=== PATIENT | female | born 1975 | race Caucasian/White ===

== ENCOUNTER 2020-01-04 12:47 | Emergency (ER) | payer BC, MEDICAID ==
[~2020-01-04] VITALS: Ht 157.5 cm; Wt 127.3 kg
[~2020-01-04 12:47] MED LIST: DYR50C PO; HYDR-4383 PO; NITR100C6 PO; ONDA4TAB59 PO; ONDA8TAB9 PO; TRAM50TA2 PO
[2020-01-04 15:34] LABS: BASOPHILS # (AUTO) 0.1 X10'3 (0-0.2); BASOPHILS % (AUTO) 0.5 % (0-1); EOSINOPHILS # (AUTO) 0.4 X10'3 (0-0.9); EOSINOPHILS % (AUTO) 4.8 % (0-6); HEMOGLOBIN 12.9 g/dl (12.0-16.0); LYMPHOCYTES # (AUTO) 2.4 X10'3 (1.1-4.8); LYMPHOCYTES % (AUTO) 25.3 % (21-51); MEAN CORPUSCULAR HEMOGLOBIN 28.3 PG (27.0-31.0); MEAN CORPUSCULAR HGB CONC 33.1 g/dL (33.0-36.5); MEAN CORPUSCULAR VOLUME 85.4 FL (78-98); MEAN PLATELET VOLUME 8.1 FL (7.4-10.4); MONOCYTES # (AUTO) 0.6 X10'3 (0-0.9); MONOCYTES % (AUTO) 6.2 % (2-12); NEUTROPHILS # (AUTO) 5.9 X10'3 (1.8-7.7); NEUTROPHILS % (AUTO) 63.2 % (42-75); PLATELET COUNT 263 X10'3 (140-440); RED BLOOD COUNT 4.57 X10'6 (4.20-5.60); WHITE BLOOD COUNT 9.3 X10'3 (4.5-11.0)
[2020-01-04 15:45] LABS: ALANINE AMINOTRANSFERASE 46 U/L (12-78); ALBUMIN 3.2 G/DL (3.4-5.0); ALBUMIN/GLOBULIN RATIO 0.7 (1.1-1.5); ALKALINE PHOSPHATASE 111 IU/L (46-116); ASPARTATE AMINO TRANSFERASE 35 U/L (10-37); BILIRUBIN,TOTAL 0.3 MG/DL (0.1-1.0); BLOOD UREA NITROGEN 11 MG/DL (7-18); BUN/CREATININE RATIO 11.8 (6.6-38.0); CALCIUM 9.3 MG/DL (8.5-10.1); CREATININE 0.93 MG/DL (0.40-0.90); GLUCOSE 120 MG/DL (70-104); TOTAL CARBON DIOXIDE 29.6 MMOL/L (24-32); TOTAL PROTEIN 7.5 G/DL (6.4-8.2); eGFR 66 ML/MIN
[2020-01-04 15:52] LABS: ANION GAP 7 (8-16); CHLORIDE 101 MMOL/L (99-107); SODIUM 138 MMOL/L (135-145)
[2020-01-04] MEDS ORDERED: iohexol 300mg/ml 100ml inj. ONE (16:07)
--- NOTE | 2020-01-04 17:30 | NUR ---
CHRISTOPHER Muniz aware of pt's elevated BP. Pt with Hx of htn, takes meds in evening.
[2020-01-04 17:34] VITALS: BP 162/109
== END 2020-01-04 17:38 | disposition home or self-care (01) ==
LOC: ER 12:48
DX: L03.213 Periorbital cellulitis (principal); I10 Essential (primary) hypertension; J45.909 Unspecified asthma, uncomplicated; G47.30 Sleep apnea, unspecified; G89.29 Other chronic pain; Z98.0 Intestinal bypass and anastomosis status; Z90.49 Acquired absence of other specified parts of digestive tract; Z98.890 Other specified postprocedural states; Z88.0 Allergy status to penicillin; Z79.899 Other long term (current) drug therapy
CPT/HCPCS: 36415; 70482; 80053; 85025; 99285; Q9967

== ENCOUNTER 2021-12-03 23:00 | Emergency (ER) | payer BC, MEDICAID ==
[~2021-12-03] VITALS: Ht 157.5 cm; Wt 127.3 kg
[2021-12-04 00:04] LABS: BASOPHILS # (AUTO) 0.1 X10'3 (0-0.2); BASOPHILS % (AUTO) 0.6 % (0-1); EOSINOPHILS # (AUTO) 0.3 X10'3 (0-0.9); EOSINOPHILS % (AUTO) 3.2 % (0-6); HEMATOCRIT 38.6 % (35.0-45.0); HEMOGLOBIN 12.9 g/dl (12.0-16.0); LYMPHOCYTES # (AUTO) 2.9 X10'3 (1.1-4.8); LYMPHOCYTES % (AUTO) 27.5 % (21-51); MEAN CORPUSCULAR HEMOGLOBIN 27.9 PG (27.0-31.0); MEAN CORPUSCULAR HGB CONC 33.5 g/dL (33.0-36.5); MEAN CORPUSCULAR VOLUME 83.4 FL (78-98); MEAN PLATELET VOLUME 7.6 FL (7.4-10.4); MONOCYTES # (AUTO) 0.8 X10'3 (0-0.9); MONOCYTES % (AUTO) 7.3 % (2-12); NEUTROPHILS # (AUTO) 6.4 X10'3 (1.8-7.7); NEUTROPHILS % (AUTO) 61.4 % (42-75); PLATELET COUNT 274 X10'3 (140-440); RED BLOOD COUNT 4.63 X10'6 (4.20-5.60); RED CELL DISTRIBUTION WIDTH 14.9 % (11.5-14.5); WHITE BLOOD COUNT 10.4 X10'3 (4.5-11.0)
[2021-12-04 00:15] LABS: CLARITY,URINE SLIGHTLY CLOUDY (Clear); COLOR,URINE YELLOW (Yellow); GLUCOSE, URINE NEGATIVE (Neg); KETONES,URINE NEGATIVE (Neg); LEUKOCYTE ESTERASE ,URINE NEGATIVE (Neg); NITRITES, URINE NEGATIVE (Neg); OCCULT BLOOD,URINE TRACE-INTACT (Neg); PROTEIN,URINE NEGATIVE (Neg); UROBILINOGEN,URINE 0.2 E.U/dL (0.2-1.0)
[2021-12-04 00:17] LABS: ALANINE AMINOTRANSFERASE 43 U/L (12-78); ALBUMIN 3.2 G/DL (3.4-5.0); ALBUMIN/GLOBULIN RATIO 0.7 (1.1-1.5); ALKALINE PHOSPHATASE 110 IU/L (46-116); ANION GAP 9 (8-16); ASPARTATE AMINO TRANSFERASE 41 U/L (10-37); BILIRUBIN,TOTAL 0.3 MG/DL (0.1-1.0); BLOOD UREA NITROGEN 12 MG/DL (7-18); BUN/CREATININE RATIO 14.5 (6.6-38.0); CALCIUM 8.4 MG/DL (8.5-10.1); CHLORIDE 105 MMOL/L (99-107); CREATININE 0.83 MG/DL (0.40-0.90); GLUCOSE 88 MG/DL (70-104); LIPASE 146 U/L (73-393); POTASSIUM 3.9 MMOL/L (3.5-5.1); SODIUM 143 MMOL/L (135-145); TOTAL CARBON DIOXIDE 28.9 MMOL/L (24-32); TOTAL PROTEIN 7.5 G/DL (6.4-8.2); eGFR 74 ML/MIN
[2021-12-04 00:20] LABS: UA COLLECTION TYPE CLN CATCH MIDSTREAM
[2021-12-04 00:23] LABS: BACTERIA,URINE FEW /HPF (Neg); RBC,URINE 0-2 /HPF (0-2); SQUAMOUS EPITHELIAL CELL,UR FEW /LPF (FEW); WBC,URINE 0-4 /HPF (0-4)
[2021-12-04] MEDS ORDERED: ONDA8TAB13 PO (05:40)
[2021-12-04] MEDS ORDERED: HYDR-3965 PO (05:40)
[2021-12-04] MEDS ORDERED: ondansetron 4mg rapidly disintigrating tab PO ONE (05:40)
[2021-12-04] MEDS ORDERED: HYDROcodone/acetaminophen 10/325mg tab PO ONE (05:40)
[2021-12-04] MEDS ORDERED: ketorolac trometh inj. 60 MG/2 ML VIAL IM ONE (05:40)
[2021-12-04 06:10] VITALS: BP 139/87
== END 2021-12-04 06:13 | disposition home or self-care (01) ==
LOC: ER 23:01
DX: R10.9 Unspecified abdominal pain (principal); I10 Essential (primary) hypertension; J45.909 Unspecified asthma, uncomplicated; G89.29 Other chronic pain; M54.9 Dorsalgia, unspecified; Z87.442 Personal history of urinary calculi; Z90.49 Acquired absence of other specified parts of digestive tract; Z88.0 Allergy status to penicillin; Z79.899 Other long term (current) drug therapy
CPT/HCPCS: 36415; 80053; 81001; 83690; 85025; 96372; 99283; J1885; 81003

== ENCOUNTER 2022-02-01 11:56 | Emergency (ER) | payer MEDICAID ==
[~2022-02-01] VITALS: Ht 157.5 cm; Wt 127.0 kg
[~2022-02-01 11:56] MED LIST changes: +ONDA8TAB13 PO
[2022-02-01 12:00] VITALS: BP 174/91
== END 2022-02-01 14:04 | disposition home or self-care (01) ==
LOC: ER 11:57
DX: J32.9 Chronic sinusitis, unspecified (principal); R04.0 Epistaxis
CPT/HCPCS: 99281

== ENCOUNTER 2022-04-30 19:39 | Emergency (ER) | payer MEDICAID ==
[~2022-04-30] VITALS: Ht 157.5 cm; Wt 127.3 kg
[2022-04-30 21:10] LABS: BASOPHILS # (AUTO) 0.1 X10'3 (0-0.2); BASOPHILS % (AUTO) 0.6 % (0-1); EOSINOPHILS # (AUTO) 0.4 X10'3 (0-0.9); EOSINOPHILS % (AUTO) 2.9 % (0-6); HEMATOCRIT 43.6 % (35.0-45.0); HEMOGLOBIN 14.7 g/dl (12.0-16.0); LYMPHOCYTES # (AUTO) 2.4 X10'3 (1.1-4.8); LYMPHOCYTES % (AUTO) 18.9 % (21-51); MEAN CORPUSCULAR HEMOGLOBIN 28.6 PG (27.0-31.0); MEAN CORPUSCULAR HGB CONC 33.8 g/dL (33.0-36.5); MEAN CORPUSCULAR VOLUME 84.7 FL (78-98); MEAN PLATELET VOLUME 7.7 FL (7.4-10.4); MONOCYTES # (AUTO) 0.7 X10'3 (0-0.9); MONOCYTES % (AUTO) 5.4 % (2-12); NEUTROPHILS # (AUTO) 9.1 X10'3 (1.8-7.7); NEUTROPHILS % (AUTO) 72.2 % (42-75); PLATELET COUNT 275 X10'3 (140-440); RED BLOOD COUNT 5.15 X10'6 (4.20-5.60); RED CELL DISTRIBUTION WIDTH 14.7 % (11.5-14.5); WHITE BLOOD COUNT 12.6 X10'3 (4.5-11.0)
[2022-04-30 21:13] LABS: CLARITY,URINE CLOUDY (Clear); COLOR,URINE YELLOW (Yellow); GLUCOSE, URINE NEGATIVE (Neg); KETONES,URINE TRACE mg/dl (Neg); LEUKOCYTE ESTERASE ,URINE NEGATIVE (Neg); NITRITES, URINE NEGATIVE (Neg); OCCULT BLOOD,URINE SMALL (Neg); PROTEIN,URINE 30 mg/dl (Neg); UROBILINOGEN,URINE 0.2 E.U/dL (0.2-1.0)
[2022-04-30 21:15] LABS: UA COLLECTION TYPE CLN CATCH MIDSTREAM
[2022-04-30 21:18] LABS: SQUAMOUS EPITHELIAL CELL,UR MANY /LPF (FEW)
[2022-04-30 21:19] LABS: CAL OXALATE CRYSTALS 2+ /HPF (NEGATIVE); HYALINE CASTS 0-3 /LPF (NEGATIVE); MUCUS STRANDS MODERATE /LPF (Neg)
[2022-04-30 21:20] LABS: BACTERIA,URINE FEW /HPF (Neg); RBC,URINE 0-2 /HPF (0-2); WBC,URINE 0-4 /HPF (0-4)
[2022-04-30 21:31] LABS: ALANINE AMINOTRANSFERASE 57 U/L (12-78); ALBUMIN 3.7 G/DL (3.4-5.0); ALBUMIN/GLOBULIN RATIO 0.8 (1.1-1.5); ALKALINE PHOSPHATASE 121 IU/L (46-116); ANION GAP 10 (8-16); ASPARTATE AMINO TRANSFERASE 52 U/L (10-37); BILIRUBIN,TOTAL 0.6 MG/DL (0.1-1.0); BLOOD UREA NITROGEN 14 MG/DL (7-18); BUN/CREATININE RATIO 15.4 (6.6-38.0); CALCIUM 9.7 MG/DL (8.5-10.1); CHLORIDE 100 MMOL/L (99-107); CREATININE 0.91 MG/DL (0.40-0.90); GLUCOSE 144 MG/DL (70-104); LIPASE 101 U/L (73-393); POTASSIUM 3.7 MMOL/L (3.5-5.1); SODIUM 136 MMOL/L (135-145); TOTAL CARBON DIOXIDE 26.1 MMOL/L (24-32); TOTAL PROTEIN 8.5 G/DL (6.4-8.2); eGFR 67 ML/MIN
[2022-04-30] MEDS ORDERED: normal saline 1000ml 1,000 ML IV ONE ×2 (21:45)
[2022-04-30] MEDS ORDERED: CefTRIAXone/D5W-Rocephin 1gm 50 ML IV ONE (22:05)
[2022-05-01] MEDS ORDERED: ONDA4TAB12 PO (00:02)
[2022-05-01] MEDS ORDERED: CEPH-585 PO (00:02)
[2022-05-01] MEDS ORDERED: normal saline 1000ML IV soln IV ONE (01:40)
[2022-05-01] MEDS ORDERED: ibuprofen tablet 400 MG TABLET PO STA (01:45)
[2022-05-01 02:08] VITALS: BP 158/82
--- NOTE | 2022-05-01 03:43 | NUR ---
iv dc'd pt being discharged dressing applied
== END 2022-05-01 03:45 | disposition home or self-care (01) ==
LOC: ER 19:39
DX: R10.13 Epigastric pain (principal); R50.9 Fever, unspecified; M54.50 Low back pain, unspecified; R11.2 Nausea with vomiting, unspecified; I10 Essential (primary) hypertension; J45.909 Unspecified asthma, uncomplicated; G89.29 Other chronic pain; G47.30 Sleep apnea, unspecified; Z87.442 Personal history of urinary calculi; Z90.49 Acquired absence of other specified parts of digestive tract; Z98.890 Other specified postprocedural states; Z88.0 Allergy status to penicillin; Z79.899 Other long term (current) drug therapy
CPT/HCPCS: 36415; 74176; 80053; 81001; 83605; 83690; 84145; 85025; 87040; 96361; 96365; 99285; J0696; J7030

== ENCOUNTER 2023-02-05 12:06 | Emergency (ER) | payer MEDICAID ==
[~2023-02-05] VITALS: Ht 160 cm; Wt 132.1 kg
[~2023-02-05 12:06] MED LIST changes: +CEPH-585 PO; +ONDA4TAB12 PO
[2023-02-05 13:33] LABS: BASOPHILS # (AUTO) 0.1 X10'3 (0-0.2); BASOPHILS % (AUTO) 0.9 % (0-1); EOSINOPHILS # (AUTO) 0.5 X10'3 (0-0.9); HEMATOCRIT 39.8 % (35.0-45.0); HEMOGLOBIN 13.3 g/dl (12.0-16.0); LYMPHOCYTES # (AUTO) 2.7 X10'3 (1.1-4.8); LYMPHOCYTES % (AUTO) 28.7 % (21-51); MEAN CORPUSCULAR HEMOGLOBIN 28.3 PG (27.0-31.0); MEAN CORPUSCULAR HGB CONC 33.4 g/dL (33.0-36.5); MEAN CORPUSCULAR VOLUME 84.6 FL (78-98); MEAN PLATELET VOLUME 7.6 FL (7.4-10.4); MONOCYTES # (AUTO) 0.7 X10'3 (0-0.9); MONOCYTES % (AUTO) 7.1 % (2-12); NEUTROPHILS # (AUTO) 5.5 X10'3 (1.8-7.7); NEUTROPHILS % (AUTO) 58.3 % (42-75); PLATELET COUNT 241 X10'3 (140-440); RED CELL DISTRIBUTION WIDTH 14.8 % (11.5-14.5); WHITE BLOOD COUNT 9.4 X10'3 (4.5-11.0)
[2023-02-05 13:43] LABS: PROTHROMBIN TIME 10.7 SECONDS (9.0-12.0)
[2023-02-05 13:58] LABS: LIPASE 26 U/L (16-77)
[2023-02-05] MEDS ORDERED: iohexol 300mg/ml 100ml inj. ONE (15:03)
[2023-02-05] MEDS ORDERED: ondansetron/PF 4mg/2ml inj IV ONE ×3 (15:10→18:05)
[2023-02-05] MEDS ORDERED: morphine 4 MG/ML inj SYRINge IV ONE ×3 (15:10→17:15)
--- NOTE | 2023-02-05 15:30 | NUR ---
RN ATTEMPTING US IV AT THIS TIME. PT IS HARD STICK.
--- NOTE | 2023-02-05 15:44 | NUR ---
PER ANGELIQUE WHITE RN MAY CHG MORPHINE 4MG TO IM AND ZOFRAN 4MG TO PO D/T US REQ FOR IV AND PT C/O PAIN.
--- NOTE | 2023-02-05 15:52 | NUR ---
RN HAVING TROUBLE ORD MORPHINE IM/ONLY OPTION IV. RN CALLED PHARM AND PHARMACIST WILL CHG ORD TO IM.
[2023-02-05 15:53] LABS: ALANINE AMINOTRANSFERASE 41 U/L (12-78); ALBUMIN 3.5 G/DL (3.4-5.0); ALBUMIN/GLOBULIN RATIO 0.8 (1.1-1.5); ALKALINE PHOSPHATASE 101 IU/L (46-116); ANION GAP 11 (8-16); ASPARTATE AMINO TRANSFERASE 39 U/L (10-37); BILIRUBIN,TOTAL 0.5 MG/DL (0.1-1.0); BLOOD UREA NITROGEN 8 MG/DL (7-18); CALCIUM 9.6 MG/DL (8.5-10.1); CHLORIDE 101 MMOL/L (99-107); GLUCOSE 156 MG/DL (70-104); POTASSIUM 3.6 MMOL/L (3.5-5.1); SODIUM 139 MMOL/L (135-145); TOTAL CARBON DIOXIDE 26.7 MMOL/L (24-32); TOTAL PROTEIN 7.9 G/DL (6.4-8.2); eCRCL 58 ML/MIN; eGFR 60 ML/MIN
[2023-02-05] MEDS ORDERED: ondansetron 4mg rapidly disintigrating tab PO ONE (15:55)
[2023-02-05] MEDS ORDERED: morphine 10mg/ml inj. IM ONE (16:00)
--- NOTE | 2023-02-05 16:43 | NUR ---
THIS RN CHARTED ASSESSMENT FOR TEACHING PURPOSES FOR ANABELLA RN WHO IS IN ORIENTATION AND OFFICIAL ASSESSMENT FOR PT.
--- NOTE | 2023-02-05 16:45 | NUR ---
PT TAKEN TO CT
[2023-02-05 17:18] LABS: BILIRUBIN,URINE NEGATIVE (Neg); CLARITY,URINE SLIGHTLY CLOUDY (Clear); COLOR,URINE YELLOW (Yellow); GLUCOSE, URINE NEGATIVE (Neg); KETONES,URINE NEGATIVE (Neg); LEUKOCYTE ESTERASE ,URINE NEGATIVE (Neg); NITRITES, URINE NEGATIVE (Neg); OCCULT BLOOD,URINE NEGATIVE (Neg); PH,URINE 6.5 (4.8-8.0); PROTEIN,URINE 30 mg/dl (Neg); UROBILINOGEN,URINE 0.2 E.U/dL (0.2-1.0)
[2023-02-05 17:22] LABS: UA COLLECTION TYPE CLN CATCH MIDSTREAM
[2023-02-05 17:23] LABS: BACTERIA,URINE FEW /HPF (Neg); MUCUS STRANDS MODERATE /LPF (Neg); RBC,URINE 0-2 /HPF (0-2); SQUAMOUS EPITHELIAL CELL,UR MANY /LPF (FEW)
[2023-02-05 17:24] LABS: WBC,URINE 0-4 /HPF (0-4)
[2023-02-05] MEDS ORDERED: OXYC-145 PO (18:23)
[2023-02-05 18:43] VITALS: BP 145/61; PULSE 93; RESP 14; TEMP 98.4; O2SAT 96
== END 2023-02-05 18:50 | disposition home or self-care (01) ==
LOC: ER 12:07
DX: R10.12 Left upper quadrant pain (principal); R19.7 Diarrhea, unspecified
CPT/HCPCS: 36415; 71045; 74177; 80053; 81001; 83690; 84484; 85025; 85610; 93005; 96372; 96374; 96375; 99285; J2270; J2274; J2405; J3490; Q9967

== ENCOUNTER 2023-03-18 17:55 | Inpatient (IN) | payer MEDICAID ==
[~2023-03-18] VITALS: Ht 157.5 cm; Wt 124.9 kg
[~2023-03-18 17:55] MED LIST changes: +OXYC-145 PO
[2023-03-18] MEDS ORDERED: normal saline 1000ML IV soln IV ONE (18:45)
[2023-03-18] MEDS ORDERED: acetaminophen 1,000mg/100ml IV 100 ML IV ONE (18:55)
[2023-03-18 19:22] LABS: URINE HCG NEGATIVE (NEG)
[2023-03-18 19:30] LABS: BILIRUBIN,URINE NEGATIVE (Neg); CLARITY,URINE SLIGHTLY CLOUDY (Clear); COLOR,URINE YELLOW (Yellow); GLUCOSE, URINE 500 mg/dl (Neg); KETONES,URINE TRACE mg/dl (Neg); LEUKOCYTE ESTERASE ,URINE TRACE (Neg); NITRITES, URINE POSITIVE (Neg); OCCULT BLOOD,URINE TRACE-INTACT (Neg); PROTEIN,URINE 100 mg/dl (Neg); UROBILINOGEN,URINE 0.2 E.U/dL (0.2-1.0)
[2023-03-18 19:41] LABS: UA COLLECTION TYPE CLN CATCH MIDSTREAM
[2023-03-18 19:49] LABS: WBC,URINE 30-50 /HPF (0-4)
[2023-03-18 19:50] LABS: BACTERIA,URINE 3+ /HPF (Neg); MUCUS STRANDS NONE SEEN /LPF (Neg); RBC,URINE 0-2 /HPF (0-2); SQUAMOUS EPITHELIAL CELL,UR MANY /LPF (FEW); WBC CLUMPS,URINE MODERATE /HPF (NEGATIVE)
[2023-03-18 19:58] LABS: BASOPHILS # (AUTO) 0.1 X10'3 (0-0.2); BASOPHILS % (AUTO) 1.1 % (0-1); EOSINOPHILS % (AUTO) 0.4 % (0-6); HEMATOCRIT 39.6 % (35.0-45.0); HEMOGLOBIN 13.2 g/dl (12.0-16.0); LYMPHOCYTES # (AUTO) 1.5 X10'3 (1.1-4.8); LYMPHOCYTES % (AUTO) 15.8 % (21-51); MEAN CORPUSCULAR HEMOGLOBIN 28.6 PG (27.0-31.0); MEAN CORPUSCULAR HGB CONC 33.4 g/dL (33.0-36.5); MEAN CORPUSCULAR VOLUME 85.6 FL (78-98); MEAN PLATELET VOLUME 8.3 FL (7.4-10.4); MONOCYTES # (AUTO) 0.8 X10'3 (0-0.9); NEUTROPHILS # (AUTO) 6.8 X10'3 (1.8-7.7); NEUTROPHILS % (AUTO) 73.7 % (42-75); PLATELET COUNT 241 X10'3 (140-440); RED BLOOD COUNT 4.63 X10'6 (4.20-5.60); RED CELL DISTRIBUTION WIDTH 14.8 % (11.5-14.5); WHITE BLOOD COUNT 9.2 X10'3 (4.5-11.0)
[2023-03-18 20:09] LABS: ALANINE AMINOTRANSFERASE 36 U/L (12-78); ALBUMIN 3.3 G/DL (3.4-5.0); ALBUMIN/GLOBULIN RATIO 0.6 (1.1-1.5); ALKALINE PHOSPHATASE 112 IU/L (46-116); ANION GAP 10 (8-16); ASPARTATE AMINO TRANSFERASE 35 U/L (10-37); BILIRUBIN,TOTAL 0.5 MG/DL (0.1-1.0); BLOOD UREA NITROGEN 16 MG/DL (7-18); BUN/CREATININE RATIO 11.7 (10.0-20.0); CALCIUM 9.3 MG/DL (8.5-10.1); CHLORIDE 94 MMOL/L (99-107); CREATININE 1.37 MG/DL (0.40-0.90); GLUCOSE 298 MG/DL (70-104); MAGNESIUM 1.6 MG/DL (1.5-2.4); POTASSIUM 3.8 MMOL/L (3.5-5.1); SODIUM 132 MMOL/L (135-145); TOTAL CARBON DIOXIDE 27.9 MMOL/L (24-32); TOTAL PROTEIN 8.7 G/DL (6.4-8.2); eCRCL 40 ML/MIN; eGFR 41 ML/MIN
[2023-03-18] MEDS ORDERED: iohexol 300mg/ml 100ml inj. ONE (20:28)
[2023-03-18] MEDS ORDERED: metroNIDAZOLE-Flagyl 500mg/NS 100 ML IV STA (21:39)
[2023-03-18] MEDS ORDERED: ketorolac trometh. 30mg/ml inj. IV ONE (21:40)
[2023-03-18] MEDS ORDERED: CefTRIAXone/D5W-Rocephin 1gm 50 ML IV ONE (21:40)
[2023-03-18] MEDS ORDERED: morphine 4 MG/ML inj SYRINge IV ONE (21:45)
[2023-03-18] MEDS ORDERED: ondansetron/PF 4mg/2ml inj IV ONE (21:45)
[2023-03-19] VITALS (9 sets, daily range): BP systolic 136–145; BP diastolic 79–80; PULSE 82–114; RESP 16–22; TEMP 98.1–99; O2SAT 95–100
[2023-03-19] MEDS ORDERED: ALBU10.7 INH (00:05)
[2023-03-19] MEDS ORDERED: HYDR-3686 PO (00:05)
[2023-03-19] MEDS ORDERED: DULO60CA65 PO (00:05)
[2023-03-19] MEDS ORDERED: ATOR40TA72 PO (00:05)
[2023-03-19] MEDS ORDERED: IRBE150T24 PO (00:05)
[2023-03-19] MEDS ORDERED: GABA1TAB3 PO (00:05)
[2023-03-19] MEDS ORDERED: TRIA1TAB5 PO (00:05)
[2023-03-19] MEDS ORDERED: PER5325T PO (00:05)
[2023-03-19] MEDS ORDERED: mag hydrox/Alum hydrox/simeth 30ml oral suspension PO PRN (00:45)
[2023-03-19] MEDS ORDERED: diphenhydrAMINE 50 mg/ml inj IV PRN (00:45)
[2023-03-19] MEDS ORDERED: morphine 2 MG/ML inj. syringe IV PRN ×2 (00:45)
[2023-03-19] MEDS ORDERED: ondansetron 4mg rapidly disintigrating tab PO PRN (00:45)
[2023-03-19] MEDS ORDERED: magnesium hydroxide 30ml (MOM) UD suspension PO PRN (00:45)
[2023-03-19] MEDS ORDERED: bisacodyl 10mg suppository rectal RC PRN (00:45)
[2023-03-19] MEDS ORDERED: acetaminophen 325mg tablet PO PRN ×2 (00:45)
[2023-03-19] MEDS ORDERED: metoclopramide 5 mg/ml inj IV PRN (00:45)
[2023-03-19] MEDS ORDERED: diphenhydrAMINE 25mg capsule PO PRN (00:45)
[2023-03-19] MEDS ORDERED: HYDROcodone/acetaminophen 5mg/325mg tablet PO PRN ×2 (00:45→01:05)
[2023-03-19] MEDS ORDERED: MESSAGE TO PHARMACY PO ONE (00:50)
[2023-03-19] MEDS ORDERED: glucagon, human recombinant 1mg kit SUBCUT PRN (00:50)
[2023-03-19] MEDS ORDERED: dextrose 50%-water 50ml dispensing syringe IV PRN ×2 (00:50)
[2023-03-19] MEDS ORDERED: DEXTROSE 15 GM of carb/4 tabs (each vial/BOTTLE has 4 tablets) PO PRN ×2 (00:50)
[2023-03-19] MEDS: normal saline 1000ml 1,000 ML IV SCH ×4 (00:57→19:38)
[2023-03-19] MEDS ORDERED: oxyCODONE/APAP 5-325mg tablet PO PRN (01:05)
[2023-03-19] MEDS ORDERED: hydrOXYzine 25 MG tablet PO PRN (01:05)
[2023-03-19 01:53] LABS: LIPASE 26 U/L (16-77); PHOSPHORUS 1.3 MG/DL (2.3-4.5); PRO BRAIN NATRIURETIC PEPTIDE 30 PG/ML (0-125)
[2023-03-19 01:54] LABS: APTT 29 SECONDS (22-32); D-DIMER 0.47 MG/L FEU (0-0.50); INR 1.1 INR; PROTHROMBIN TIME 11.5 SECONDS (9.0-12.0)
[2023-03-19 05:14] LABS: URINE AMPHETAMINE SCREEN NEGATIVE (Neg); URINE BARBITUATE SCREEN NEGATIVE (Neg); URINE BENZODIAZEPINES SCREEN NEGATIVE (Neg); URINE CANNABINOID SCREEN POSITIVE (Neg); URINE COCAINE SCREEN NEGATIVE (Neg); URINE METHADONE SCREEN NEGATIVE (Neg); URINE OPIATE SCREEN NEGATIVE (Neg); URINE PHENCYCLIDINE SCREEN NEGATIVE (Neg)
[2023-03-19] MEDS: albuterol 2.5 MG/3 ML nebule NEB SCH ×3 (07:59→21:01)
[2023-03-19] MEDS: budesonide 0.5mg/2ml UD nebule IH SCH ×2 (07:59→21:01)
[2023-03-19] MEDS: atorvastatin 20mg tablet PO SCH (08:50)
[2023-03-19] MEDS: docusate sod 100mg capsule PO SCH ×2 (08:50→20:00)
[2023-03-19] MEDS: gabapentin 300mg capsule PO SCH ×3 (08:50→20:53)
[2023-03-19] MEDS: heparin, porcine 5000 units/ml vial SQ SCH ×2 (08:51→17:22)
[2023-03-19] MEDS: levoFLOXACIN-Levaquin 750MG/D5 150 ML IV SCH (08:52)
[2023-03-19] MEDS: pantoprazole 40mg Tablet.DR PO SCH (09:26)
[2023-03-19] MEDS: duloxetine 30mg CAPSULE.DR PO SCH (09:26)
[2023-03-19] MEDS: losartan 50mg tablet PO SCH (09:27)
[2023-03-19] MEDS: insulin Lispro (HumaLOG) vial - multi-dose SQ SCH ×2 (11:03→14:08)
[2023-03-19] MEDS: ondansetron/PF 4mg/2ml inj IV PRN (14:10)
[2023-03-19] MEDS: HYDROcodone/acetaminophen 10/325mg tab PO PRN (18:12)
[2023-03-19] MEDS ORDERED: insulin glargine (Lantus) pen - multi-dose SQ SCH (21:00)
[2023-03-19] MEDS ORDERED: temazepam 15mg capsule PO PRN (21:00)
[2023-03-20] MEDS: heparin, porcine 5000 units/ml vial SQ SCH ×2 (01:34→08:41)
[2023-03-20] MEDS: HYDROcodone/acetaminophen 10/325mg tab PO PRN (01:38)
[2023-03-20 02:00] VITALS: BP 120/62; PULSE 105; RESP 20; TEMP 98.2; O2SAT 96
[2023-03-20] MEDS: albuterol 2.5 MG/3 ML nebule NEB SCH ×2 (02:00→08:00)
[2023-03-20] MEDS: ondansetron/PF 4mg/2ml inj IV PRN (04:50)
[2023-03-20 06:00] VITALS: BP 149/96; PULSE 96; RESP 22; TEMP 97.9; O2SAT 98
[2023-03-20 06:22] LABS: BASOPHILS # (AUTO) 0.1 X10'3 (0-0.2); BASOPHILS % (AUTO) 0.8 % (0-1); EOSINOPHILS # (AUTO) 0.2 X10'3 (0-0.9); EOSINOPHILS % (AUTO) 3.1 % (0-6); HEMATOCRIT 29.7 % (35.0-45.0); HEMOGLOBIN 10.1 g/dl (12.0-16.0); LYMPHOCYTES # (AUTO) 1.9 X10'3 (1.1-4.8); LYMPHOCYTES % (AUTO) 27.8 % (21-51); MEAN CORPUSCULAR HEMOGLOBIN 28.8 PG (27.0-31.0); MEAN CORPUSCULAR VOLUME 84.7 FL (78-98); MEAN PLATELET VOLUME 7.7 FL (7.4-10.4); MONOCYTES # (AUTO) 0.9 X10'3 (0-0.9); MONOCYTES % (AUTO) 13.5 % (2-12); NEUTROPHILS # (AUTO) 3.7 X10'3 (1.8-7.7); NEUTROPHILS % (AUTO) 54.8 % (42-75); PLATELET COUNT 184 X10'3 (140-440); RED BLOOD COUNT 3.51 X10'6 (4.20-5.60); RED CELL DISTRIBUTION WIDTH 14.2 % (11.5-14.5); WHITE BLOOD COUNT 6.8 X10'3 (4.5-11.0)
[2023-03-20 06:41] LABS: ALANINE AMINOTRANSFERASE 30 U/L (12-78); ALBUMIN 2.5 G/DL (3.4-5.0); ALBUMIN/GLOBULIN RATIO 0.6 (1.1-1.5); ALKALINE PHOSPHATASE 84 IU/L (46-116); ANION GAP 10 (8-16); ASPARTATE AMINO TRANSFERASE 44 U/L (10-37); BILIRUBIN,TOTAL 0.4 MG/DL (0.1-1.0); BLOOD UREA NITROGEN 9 MG/DL (7-18); BUN/CREATININE RATIO 8.5 (10.0-20.0); CALCIUM 7.7 MG/DL (8.5-10.1); CHLORIDE 102 MMOL/L (99-107); CHOL/HDL RATIO 4.4 (0.00-4.99); CHOLESTEROL 146 MG/DL (0-200); CREATININE 1.06 MG/DL (0.40-0.90); GLUCOSE 167 MG/DL (70-104); HDL CHOLESTEROL 33 MG/DL (35-60); LDL CHOLESTEROL 66 MG/DL (50-100); POTASSIUM 3.5 MMOL/L (3.5-5.1); SODIUM 138 MMOL/L (135-145); TOTAL CARBON DIOXIDE 26.3 MMOL/L (24-32); TOTAL PROTEIN 6.8 G/DL (6.4-8.2); TRIGLYCERIDES 336 MG/DL (20-135); eCRCL 52 ML/MIN; eGFR 56 ML/MIN
[2023-03-20] MEDS: docusate sod 100mg capsule PO SCH (08:00)
[2023-03-20] MEDS: budesonide 0.5mg/2ml UD nebule IH SCH (08:00)
[2023-03-20] MEDS: levoFLOXACIN-Levaquin 750MG/D5 150 ML IV SCH (08:32)
[2023-03-20 08:35] VITALS: PULSE 86; RESP 18; O2SAT 98
[2023-03-20] MEDS: pantoprazole 40mg Tablet.DR PO SCH (08:36)
[2023-03-20] MEDS: duloxetine 30mg CAPSULE.DR PO SCH (08:36)
[2023-03-20] MEDS: atorvastatin 20mg tablet PO SCH (08:36)
[2023-03-20 08:37] VITALS: BP_SYST 149; PULSE 96
[2023-03-20] MEDS: losartan 50mg tablet PO SCH (08:37)
[2023-03-20] MEDS: gabapentin 300mg capsule PO SCH (08:37)
[2023-03-20] MEDS: normal saline 1000ml 1,000 ML IV SCH ×2 (08:41→11:45)
[2023-03-20] MEDS ORDERED: LEVO-65 PO (10:06)
== END 2023-03-20 12:30 | disposition home or self-care (01) | DRG 720 ==
LOC: ER 17:55 → ED HOLD 03-19 00:49 → PCU 3S 03-19 17:29
PROVIDERS: ADMIT Family Medicine; ATTEND Internal Medicine
PROC: BW211ZZ Computerized Tomography (CT Scan) of Abdomen and Pelvis using Low Osmolar Contrast (ICD-10-PCS; principal; 2023-03-18)
DX: A41.9 Sepsis, unspecified organism (principal); N17.9 Acute kidney failure, unspecified; E87.1 Hypo-osmolality and hyponatremia; Z68.43 Body mass index [BMI] 50.0-59.9, adult; E66.01 Morbid (severe) obesity due to excess calories; Z20.822 Contact with and (suspected) exposure to COVID-19; E11.65 Type 2 diabetes mellitus with hyperglycemia; E78.00 Pure hypercholesterolemia, unspecified; E86.0 Dehydration; G89.4 Chronic pain syndrome; I10 Essential (primary) hypertension; J45.909 Unspecified asthma, uncomplicated; K52.9 Noninfective gastroenteritis and colitis, unspecified; N11.9 Chronic tubulo-interstitial nephritis, unspecified; N20.0 Calculus of kidney; N83.201 Unspecified ovarian cyst, right side; N92.0 Excessive and frequent menstruation with regular cycle; R65.20 Severe sepsis without septic shock; Z87.442 Personal history of urinary calculi; Z88.0 Allergy status to penicillin; Z90.49 Acquired absence of other specified parts of digestive tract; Z98.84 Bariatric surgery status; Z79.899 Other long term (current) drug therapy
CPT/HCPCS: 36415; 71045; 74177; 76856; 80053; 80061; 80305; 81001; 81025; 82948; 83036; 83605; 83690; 83735; 83880; 84100; 84132; 84145; 84443; 85025; 85379; 85610; 85730; 87040; 87502; 87503; 87811; 93976; 94640; 94760; 99285; G0378; J0131; J0696; J1644; J1815; J1885; J1956; J2270; J2405; J2765; J3490; J7030; Q9967

== ENCOUNTER 2023-06-01 15:54 | Emergency (ER) | payer BC, MEDICAID ==
[~2023-06-01] VITALS: Ht 157.5 cm; Wt 122.7 kg
[~2023-06-01 15:54] MED LIST changes: +ALBU10.7 INH; +ATOR40TA72 PO; -CEPH-585 PO; +DULO60CA65 PO; -DYR50C PO; +GABA1TAB3 PO; +HYDR-3686 PO; +IRBE150T34 PO; -NITR100C6 PO; -ONDA4TAB12 PO; -ONDA4TAB59 PO; -ONDA8TAB13 PO; -ONDA8TAB9 PO; -TRAM50TA2 PO; +TRIA1TAB5 PO
[2023-06-01 15:58] VITALS: BP 160/81; PULSE 92; RESP 18; TEMP 97.2; O2SAT 98
[2023-06-01] MEDS ORDERED: IBUP-1986 PO (16:59)
== END 2023-06-01 17:09 | disposition home or self-care (01) ==
LOC: ER 15:55
DX: M25.561 Pain in right knee (principal); I10 Essential (primary) hypertension; J45.909 Unspecified asthma, uncomplicated; G89.29 Other chronic pain; M54.9 Dorsalgia, unspecified; E78.00 Pure hypercholesterolemia, unspecified; Z87.442 Personal history of urinary calculi; Z90.49 Acquired absence of other specified parts of digestive tract; Z98.890 Other specified postprocedural states; Z88.0 Allergy status to penicillin; Z79.899 Other long term (current) drug therapy
CPT/HCPCS: 73564; 99283

== ENCOUNTER 2023-07-18 00:45 | Emergency (ER) | payer BC ==
[~2023-07-18] VITALS: Ht 157.5 cm; Wt 120.0 kg
[~2023-07-18 00:45] MED LIST changes: +IBUP-1986 PO
[2023-07-18 00:51] VITALS: RESP 20; TEMP 98.1
[2023-07-18 02:00] VITALS: BP 155/80; PULSE 89; O2SAT 98
[2023-07-18] MEDS: normal saline 1000ML IV soln IVB ONE (02:16)
[2023-07-18 02:43] LABS: BILIRUBIN,URINE NEGATIVE (Neg); CLARITY,URINE SLIGHTLY CLOUDY (Clear); COLOR,URINE YELLOW (Yellow); GLUCOSE, URINE NEGATIVE (Neg); KETONES,URINE TRACE mg/dl (Neg); LEUKOCYTE ESTERASE ,URINE TRACE (Neg); NITRITES, URINE NEGATIVE (Neg); OCCULT BLOOD,URINE LARGE (Neg); PROTEIN,URINE 30 mg/dl (Neg); UROBILINOGEN,URINE 0.2 E.U/dL (0.2-1.0)
[2023-07-18 02:52] LABS: ALBUMIN 3.5 G/DL (3.4-5.0); ANION GAP 10 (8-16); BLOOD UREA NITROGEN 12 MG/DL (7-18); BUN/CREATININE RATIO 12.2 (10.0-20.0); CALCIUM 9.8 MG/DL (8.5-10.1); CHLORIDE 101 MMOL/L (99-107); CREATININE 0.98 MG/DL (0.40-0.90); GLUCOSE 107 MG/DL (70-104); POTASSIUM 3.2 MMOL/L (3.5-5.1); SODIUM 140 MMOL/L (135-145); TOTAL CARBON DIOXIDE 28.8 MMOL/L (24-32); eCRCL 56 ML/MIN; eGFR 61 ML/MIN
[2023-07-18 02:55] LABS: APTT 30 SECONDS (22-32); INR 1.1 INR; PROTHROMBIN TIME 11.4 SECONDS (9.0-12.0)
[2023-07-18 02:56] LABS: UA COLLECTION TYPE CLN CATCH MIDSTREAM
[2023-07-18 03:02] LABS: EOSINOPHILS # (AUTO) 0.4 X10'3 (0-0.9); HEMOGLOBIN 13.2 g/dl (12.0-16.0); MEAN PLATELET VOLUME 7.6 FL (7.4-10.4)
[2023-07-18 03:05] LABS: BACTERIA,URINE 3+ /HPF (Neg); RBC,URINE TNTC /HPF (0-2); SQUAMOUS EPITHELIAL CELL,UR FEW /LPF (FEW); WBC,URINE 0-4 /HPF (0-4)
[2023-07-18 03:06] LABS: BASOPHILS # (AUTO) 0.1 X10'3 (0-0.2); BASOPHILS % (AUTO) 0.8 % (0-1); HEMATOCRIT 39.5 % (35.0-45.0); LYMPHOCYTES # (AUTO) 3.3 X10'3 (1.1-4.8); LYMPHOCYTES % (AUTO) 29.6 % (21-51); MEAN CORPUSCULAR HEMOGLOBIN 26.7 PG (27.0-31.0); MEAN CORPUSCULAR HGB CONC 33.5 g/dL (33.0-36.5); MEAN CORPUSCULAR VOLUME 79.9 FL (78-98); MONOCYTES # (AUTO) 0.7 X10'3 (0-0.9); MONOCYTES % (AUTO) 6.3 % (2-12); NEUTROPHILS # (AUTO) 6.5 X10'3 (1.8-7.7); NEUTROPHILS % (AUTO) 59.3 % (42-75); PLATELET COUNT 315 X10'3 (140-440); RED BLOOD COUNT 4.94 X10'6 (4.20-5.60); RED CELL DISTRIBUTION WIDTH 15.1 % (11.5-14.5)
[2023-07-18 03:06] LABS: FINE GRANULAR CAST 0-3 /LPF (NEGATIVE); MUCUS STRANDS FEW /LPF (Neg)
[2023-07-18] MEDS: POTASSIUM BICARB 20meq eff tab 20 MEQ TABLET.EFF PO SCH (04:04)
== END 2023-07-18 04:45 | disposition home or self-care (01) ==
LOC: ER 00:46
DX: N93.9 Abnormal uterine and vaginal bleeding, unspecified (principal); E78.00 Pure hypercholesterolemia, unspecified; I10 Essential (primary) hypertension; R79.1 Abnormal coagulation profile; Z88.0 Allergy status to penicillin; Z79.899 Other long term (current) drug therapy; Z79.1 Long term (current) use of non-steroidal anti-inflammatories (NSAID); Z90.49 Acquired absence of other specified parts of digestive tract; Z98.890 Other specified postprocedural states
CPT/HCPCS: 36415; 76856; 80048; 81001; 85025; 85610; 85730; 87088; 93976; 96360; 99284; J7030

== ENCOUNTER 2024-03-12 20:44 | Emergency (ER) | payer SELFPAY ==
[~2024-03-12] VITALS: Ht 157.5 cm; Wt 106.8 kg
[2024-03-12 21:53] LABS: BILIRUBIN,URINE NEGATIVE (Neg); CLARITY,URINE CLEAR (Clear); COLOR,URINE YELLOW (Yellow); GLUCOSE, URINE NEGATIVE (Neg); KETONES,URINE TRACE mg/dl (Neg); LEUKOCYTE ESTERASE ,URINE NEGATIVE (Neg); NITRITES, URINE NEGATIVE (Neg); OCCULT BLOOD,URINE NEGATIVE (Neg); PH,URINE 5.5 (4.8-8.0); PROTEIN,URINE TRACE mg/dl (Neg); UROBILINOGEN,URINE 0.2 E.U/dL (0.2-1.0)
[2024-03-12 21:54] LABS: UA COLLECTION TYPE CLN CATCH MIDSTREAM
[2024-03-12 21:58] LABS: BACTERIA,URINE 1+ /HPF (Neg); MUCUS STRANDS FEW /LPF (Neg); RBC,URINE NONE SEEN /HPF (0-2); SQUAMOUS EPITHELIAL CELL,UR MODERATE /LPF (FEW); WBC,URINE 0-4 /HPF (0-4)
[2024-03-13] MEDS: ondansetron 4mg rapidly disintigrating tab PO ONE (00:07)
[2024-03-13] MEDS: acetaminophen 325mg tablet PO ONE (00:08)
[2024-03-13] MEDS: morphine 4 MG/ML inj SYRINge IM ONE (00:13)
[2024-03-13] MEDS: morphine 4 MG/ML inj SYRINge ONE (00:17)
[2024-03-13 00:32] VITALS: BP 153/105; PULSE 90; TEMP 98.6; O2SAT 96
[2024-03-13 00:35] VITALS: RESP 18
== END 2024-03-13 00:24 | disposition home or self-care (01) ==
LOC: ER 20:44
DX: S29.012A Strain of muscle and tendon of back wall of thorax, initial encounter (principal); I10 Essential (primary) hypertension; G89.29 Other chronic pain; E78.00 Pure hypercholesterolemia, unspecified; G47.30 Sleep apnea, unspecified; J45.909 Unspecified asthma, uncomplicated; Z88.0 Allergy status to penicillin; Z79.899 Other long term (current) drug therapy; Z90.49 Acquired absence of other specified parts of digestive tract; Z98.84 Bariatric surgery status; W19.XXXA Unspecified fall, initial encounter; Y93.89 Activity, other specified; Y92.89 Other specified places as the place of occurrence of the external cause; Y99.8 Other external cause status
CPT/HCPCS: 81001; 96372; 99283; J2270

== ENCOUNTER 2024-07-01 19:40 | Inpatient (IN) | payer BC, OTHER ==
[~2024-07-01] VITALS: Ht 157.5 cm; Wt 113.6 kg
[~2024-07-01 19:40] MED LIST changes: -ALBU10.7 INH; +ALBU18HF2 PO; +ATOR-411 PO; -ATOR40TA72 PO; +CEFD300C3 PO; +CYCL-1 PO; +DULO60CA59 PO; -DULO60CA65 PO; +GABA-530 PO; -GABA1TAB3 PO; -HYDR-3686 PO; -HYDR-4383 PO; +HYDR50TA65 PO; -IBUP-1986 PO; -OXYC-145 PO; +OXYC-150 PO
[2024-07-01 20:56] LABS: BASOPHILS # (AUTO) 0.1 X10'3 (0-0.2); BASOPHILS % (AUTO) 0.5 % (0-1); EOSINOPHILS # (AUTO) 0.2 X10'3 (0-0.9); HEMOGLOBIN 12.3 g/dl (12.0-16.0); LYMPHOCYTES # (AUTO) 1.7 X10'3 (1.1-4.8); LYMPHOCYTES % (AUTO) 10.5 % (21-51); MEAN CORPUSCULAR HEMOGLOBIN 27.2 PG (27.0-31.0); MEAN CORPUSCULAR HGB CONC 32.4 g/dL (33.0-36.5); MEAN CORPUSCULAR VOLUME 83.7 FL (78-98); MEAN PLATELET VOLUME 7.2 FL (7.4-10.4); MONOCYTES % (AUTO) 5.9 % (2-12); NEUTROPHILS # (AUTO) 13.5 X10'3 (1.8-7.7); NEUTROPHILS % (AUTO) 82.1 % (42-75); PLATELET COUNT 266 X10'3 (140-440); RED BLOOD COUNT 4.54 X10'6 (4.20-5.60); RED CELL DISTRIBUTION WIDTH 14.4 % (11.5-14.5); WHITE BLOOD COUNT 16.5 X10'3 (4.5-11.0)
[2024-07-01 21:08] LABS: ALBUMIN 3.5 G/DL (3.4-5.0); ANION GAP 6 (8-16); BLOOD UREA NITROGEN 9 MG/DL (7-18); BUN/CREATININE RATIO 11.3 (10.0-20.0); CALCIUM 9.1 MG/DL (8.5-10.1); CHLORIDE 102 MMOL/L (99-107); GLUCOSE 101 MG/DL (70-104); POTASSIUM 3.8 MMOL/L (3.5-5.1); SODIUM 139 MMOL/L (135-145); TOTAL CARBON DIOXIDE 30.8 MMOL/L (24-32); eCRCL 68 ML/MIN; eGFR 77 ML/MIN
[2024-07-01] MEDS ORDERED: VANCOMYCIN 1GM 200ML H20 (PEG) 200 ML IV ONE (22:20)
[2024-07-01] MEDS ORDERED: iohexol 350MG/ML 100ml bottle IV ONE (22:29)
[2024-07-01] MEDS: azithromycin/NS 500mg/250ml 250 ML IV ONE (23:14)
[2024-07-01] MEDS: vancomycin/NS 1 GM ADD-VANTAGE 250 ML IV ONE (23:14)
[2024-07-01] MEDS: ketorolac trometh 15mg/ml vial 15 MG/ML ML IV ONE (23:50)
[2024-07-01] MEDS: ondansetron/PF 4mg/2ml inj IV ONE (23:50)
[2024-07-02] VITALS (12 sets, daily range): BP systolic 154–180; BP diastolic 87–112; PULSE 85–96; RESP 11–22; TEMP 97.3–99; O2SAT 93–98
[2024-07-02] MEDS ORDERED: magnesium sulf-water 2g/50mL 50 ML IV PRN (00:15)
[2024-07-02] MEDS ORDERED: potassium Cl 20 mEq SR tablet PO PRN (00:15)
[2024-07-02] MEDS ORDERED: HYDROcodone/acetaminophen 5mg/325mg tablet PO PRN (00:15)
[2024-07-02] MEDS ORDERED: potassium Cl 40MEQ/1/2NS 520ml 520 ML IV PRN (00:15)
[2024-07-02] MEDS ORDERED: acetaminophen 325mg tablet PO PRN (00:15)
[2024-07-02] MEDS ORDERED: morphine 2 MG/ML inj. syringe IV PRN ×2 (00:15)
[2024-07-02] MEDS ORDERED: magnesium sulf-water 4G/100mL 100 ML IV PRN (00:15)
[2024-07-02] MEDS: CefTRIAXone/D5W-Rocephin 1gm 50 ML IV ONE (00:46)
[2024-07-02 01:07] LABS: MAGNESIUM 1.4 MG/DL (1.5-2.4); PHOSPHORUS 3.4 MG/DL (2.3-4.5)
[2024-07-02] MEDS ORDERED: albuterol 2.5 MG/3 ML nebule NEB PRN (01:10)
[2024-07-02] MEDS: normal saline 1000ml 1,000 ML IV SCH (01:43)
[2024-07-02] MEDS: piperacillin/tazo 3.375gm/50ml 50 ML IV SCH (03:58)
[2024-07-02] MEDS ORDERED: triamterene/HCTZ 37.5/25mg tablet PO SCH (04:25)
[2024-07-02] MEDS: gabapentin 100mg capsule PO ONE (04:41)
[2024-07-02] MEDS: oxyCODONE/APAP 10/325mg tablet PO ONE (04:41)
[2024-07-02] MEDS: triamterene/HCTZ 37.5/25mg tablet PO ONE (04:41)
[2024-07-02] MEDS: gabapentin 300mg capsule PO SCH (07:44)
[2024-07-02] MEDS: losartan 50mg tablet PO SCH (07:45)
[2024-07-02] MEDS: docusate sod 100mg capsule PO SCH (07:45)
[2024-07-02] MEDS: heparin, porcine 5000 units/ml vial SQ SCH (07:46)
[2024-07-02] MEDS: vancomycin/NS 1 GM ADD-VANTAGE 250 ML IV SCH (07:47)
[2024-07-02] MEDS: K and/or MAG REPLACEMENT MC SCH (08:11)
[2024-07-02] MEDS: PERFLUTREN PROTEIN-A MICROSPHR (Optison) 0.22 MG/ML 3ML VIAL IV ONE (08:55)
[2024-07-02] MEDS: ondansetron/PF 4mg/2ml inj IV PRN (12:15)
[2024-07-02] MEDS: levoFLOXACIN-Levaquin 750MG/D5 150 ML IV SCH (14:10)
[2024-07-02] MEDS ORDERED: vancomycin/NS 1 GM ADD-VANTAGE 250 ML IV SCH (16:00)
[2024-07-02] MEDS: magnesium Cl slow-release 64mg tablet PO PRN (17:19)
[2024-07-02] MEDS: furosemide 20 MG/2 ML vial IV SCH (20:50)
[2024-07-02] MEDS: cyclobenzaprine 10mg tablet PO SCH (20:52)
[2024-07-02] MEDS: duloxetine 30mg CAPSULE.DR PO SCH (20:52)
[2024-07-02] MEDS: hydrOXYzine 25 MG tablet PO SCH (20:52)
[2024-07-02] MEDS: atorvastatin 20mg tablet PO SCH (20:52)
[2024-07-02] MEDS: triamterene/HCTZ 37.5/25mg tablet PO SCH (20:53)
[2024-07-02] MEDS: HYDROcodone/acetaminophen 10/325mg tab PO PRN (21:08)
[2024-07-02] MEDS: hydrALAZINE 20mg/ml inj. IV ONE (23:05)
[2024-07-02] MEDS: VANCOMYCIN LEVEL IV ONE (23:30)
[2024-07-03] VITALS (10 sets, daily range): BP systolic 119–183; BP diastolic 59–103; PULSE 78–100; RESP 12–22; TEMP 97.5–98.4; O2SAT 89–99
[2024-07-03] MEDS: Melatonin 3mg tablet PO SCH (00:31)
[2024-07-03 06:52] LABS: BASOPHILS # (AUTO) 0.1 X10'3 (0-0.2); BASOPHILS % (AUTO) 1.2 % (0-1); EOSINOPHILS # (AUTO) 0.5 X10'3 (0-0.9); EOSINOPHILS % (AUTO) 5.4 % (0-6); HEMATOCRIT 37.5 % (35.0-45.0); HEMOGLOBIN 12.6 g/dl (12.0-16.0); LYMPHOCYTES # (AUTO) 2.6 X10'3 (1.1-4.8); MEAN CORPUSCULAR HEMOGLOBIN 28.4 PG (27.0-31.0); MEAN CORPUSCULAR HGB CONC 33.7 g/dL (33.0-36.5); MEAN CORPUSCULAR VOLUME 84.4 FL (78-98); MEAN PLATELET VOLUME 7.1 FL (7.4-10.4); MONOCYTES # (AUTO) 0.8 X10'3 (0-0.9); MONOCYTES % (AUTO) 7.7 % (2-12); NEUTROPHILS # (AUTO) 5.7 X10'3 (1.8-7.7); NEUTROPHILS % (AUTO) 58.7 % (42-75); PLATELET COUNT 316 X10'3 (140-440); RED BLOOD COUNT 4.44 X10'6 (4.20-5.60); RED CELL DISTRIBUTION WIDTH 14.4 % (11.5-14.5); WHITE BLOOD COUNT 9.8 X10'3 (4.5-11.0)
[2024-07-03 07:19] LABS: ALANINE AMINOTRANSFERASE 22 U/L (12-78); ALBUMIN 3.5 G/DL (3.4-5.0); ALBUMIN/GLOBULIN RATIO 0.7 (1.1-1.5); ALKALINE PHOSPHATASE 96 IU/L (46-116); ANION GAP 7 (8-16); ASPARTATE AMINO TRANSFERASE 16 U/L (10-37); BILIRUBIN,TOTAL 0.6 MG/DL (0.1-1.0); BLOOD UREA NITROGEN 13 MG/DL (7-18); BUN/CREATININE RATIO 13.8 (10.0-20.0); CALCIUM 9.2 MG/DL (8.5-10.1); CHLORIDE 100 MMOL/L (99-107); CREATININE 0.94 MG/DL (0.40-0.90); GLUCOSE 97 MG/DL (70-104); POTASSIUM 3.3 MMOL/L (3.5-5.1); SODIUM 137 MMOL/L (135-145); TOTAL CARBON DIOXIDE 29.6 MMOL/L (24-32); TOTAL PROTEIN 8.8 G/DL (6.4-8.2); eCRCL 58 ML/MIN; eGFR 64 ML/MIN
[2024-07-03 11:12] LABS: COMPLEMENT C3, SERUM 187 mg/dL (82-167)
[2024-07-03] MEDS: potassium Cl 20 mEq SR tablet PO PRN (12:07)
[2024-07-03 12:25] LABS: HIV ANTIBODY 1&2 RAPID NON-REACTIVE (Neg)
[2024-07-03 15:12] LABS: ANTI-DSDNA ANTIBODIES 1 IU/mL (0-9); ANTINUCLEAR ANTIBODIES Negative (Negative)
[2024-07-03] MEDS: oxyCODONE/APAP 10/325mg tablet PO ONE (20:17)
[2024-07-03] MEDS: amLODIPine 5mg tablet PO ONE (20:18)
[2024-07-03] MEDS ORDERED: Melatonin 3mg tablet PO SCH (21:00)
[2024-07-04 02:00] VITALS: BP 123/87; PULSE 94; RESP 18; TEMP 97.4; O2SAT 96
[2024-07-04] MEDS: acetaminophen 325mg tablet PO PRN (03:22)
[2024-07-04] MEDS: HYDROcodone/acetaminophen 5mg/325mg tablet PO ONE (05:06)
[2024-07-04 06:00] VITALS: BP 143/83; PULSE 87; RESP 19; TEMP 96.9; O2SAT 97
[2024-07-04 07:22] LABS: BASOPHILS # (AUTO) 0.1 X10'3 (0-0.2); BASOPHILS % (AUTO) 1.3 % (0-1); EOSINOPHILS # (AUTO) 0.4 X10'3 (0-0.9); EOSINOPHILS % (AUTO) 5.4 % (0-6); HEMOGLOBIN 14.2 g/dl (12.0-16.0); LYMPHOCYTES # (AUTO) 2.3 X10'3 (1.1-4.8); LYMPHOCYTES % (AUTO) 29.5 % (21-51); MEAN CORPUSCULAR HEMOGLOBIN 27.2 PG (27.0-31.0); MEAN CORPUSCULAR HGB CONC 32.4 g/dL (33.0-36.5); MEAN CORPUSCULAR VOLUME 83.9 FL (78-98); MEAN PLATELET VOLUME 7.3 FL (7.4-10.4); MONOCYTES # (AUTO) 0.8 X10'3 (0-0.9); NEUTROPHILS # (AUTO) 4.2 X10'3 (1.8-7.7); NEUTROPHILS % (AUTO) 53.8 % (42-75); PLATELET COUNT 354 X10'3 (140-440); RED BLOOD COUNT 5.24 X10'6 (4.20-5.60); RED CELL DISTRIBUTION WIDTH 14.4 % (11.5-14.5); WHITE BLOOD COUNT 7.9 X10'3 (4.5-11.0)
[2024-07-04 07:47] LABS: ALANINE AMINOTRANSFERASE 17 U/L (12-78); ALBUMIN 3.7 G/DL (3.4-5.0); ALBUMIN/GLOBULIN RATIO 0.8 (1.1-1.5); ALKALINE PHOSPHATASE 100 IU/L (46-116); ANION GAP 10 (8-16); ASPARTATE AMINO TRANSFERASE 13 U/L (10-37); BILIRUBIN,TOTAL 0.6 MG/DL (0.1-1.0); BLOOD UREA NITROGEN 17 MG/DL (7-18); BUN/CREATININE RATIO 16.7 (10.0-20.0); CALCIUM 9.6 MG/DL (8.5-10.1); CHLORIDE 99 MMOL/L (99-107); CREATININE 1.02 MG/DL (0.40-0.90); GLUCOSE 114 MG/DL (70-104); MAGNESIUM 1.7 MG/DL (1.5-2.4); POTASSIUM 3.8 MMOL/L (3.5-5.1); SODIUM 137 MMOL/L (135-145); TOTAL CARBON DIOXIDE 28.2 MMOL/L (24-32); TOTAL PROTEIN 8.4 G/DL (6.4-8.2); eCRCL 53 ML/MIN; eGFR 58 ML/MIN
[2024-07-04] MEDS: oxyCODONE/APAP 10/325mg tablet PO PRN (08:09)
[2024-07-04 08:42] VITALS: RESP 19; O2SAT 97
[2024-07-04] MEDS ORDERED: LEVO750T68 PO (10:30)
[2024-07-04] MEDS: GADOTERATE MEGLUMINE 7.5 MMOL/15 ML VIAL IV ONE (12:15)
[2024-07-04 14:26] VITALS: BP 162/85; PULSE 107; RESP 20; TEMP 97.5; O2SAT 96
[2024-07-05 05:14] LABS: HEP B SURF AB Non Reactive (.); HEPATITIS C VIRUS ANTIBODY Non Reactive (Non Reactive)
== END 2024-07-04 15:41 | disposition home or self-care (01) | DRG 177 ==
LOC: ER 19:40 → ED HOLD 07-02 00:19 → PCU 3S 07-02 02:17
PROVIDERS: ADMIT Surgery Surgical Critical Care; ATTEND Internal Medicine
PROC: B32T1ZZ Computerized Tomography (CT Scan) of Left Pulmonary Artery using Low Osmolar Contrast (ICD-10-PCS; principal; 2024-07-01)
PROC: B3201ZZ Computerized Tomography (CT Scan) of Thoracic Aorta using Low Osmolar Contrast (ICD-10-PCS; 2024-07-01)
PROC: B32S1ZZ Computerized Tomography (CT Scan) of Right Pulmonary Artery using Low Osmolar Contrast (ICD-10-PCS; 2024-07-01)
PROC: BW211ZZ Computerized Tomography (CT Scan) of Abdomen and Pelvis using Low Osmolar Contrast (ICD-10-PCS; 2024-07-01)
DX: J69.0 Pneumonitis due to inhalation of food and vomit (principal); J96.01 Acute respiratory failure with hypoxia; I31.39 Other pericardial effusion (noninflammatory); N17.9 Acute kidney failure, unspecified; Z20.822 Contact with and (suspected) exposure to COVID-19; J15.69 Pneumonia due to other Gram-negative bacteria; J15.9 Unspecified bacterial pneumonia; E78.00 Pure hypercholesterolemia, unspecified; D72.828 Other elevated white blood cell count; I10 Essential (primary) hypertension; J45.909 Unspecified asthma, uncomplicated; E87.6 Hypokalemia; G62.9 Polyneuropathy, unspecified; M62.838 Other muscle spasm; G89.29 Other chronic pain; M54.89 Other dorsalgia; M48.02 Spinal stenosis, cervical region; F41.9 Anxiety disorder, unspecified; G47.30 Sleep apnea, unspecified; F32.A Depression, unspecified; Z79.899 Other long term (current) drug therapy; Z88.0 Allergy status to penicillin; Z90.49 Acquired absence of other specified parts of digestive tract; Z87.442 Personal history of urinary calculi; Z98.84 Bariatric surgery status
CPT/HCPCS: 36415; 71045; 71275; 72156; 72157; 72158; 74177; 80048; 80053; 82595; 82607; 83605; 83615; 83735; 83880; 84100; 84132; 84145; 84484; 85025; 85651; 86038; 86147; 86160; 86703; 86706; 86803; 87040; 87081; 87502; 87503; 87522; 87811; 93005; 93306; 94760; 96365; 96367; 96375; 99285; A6223; A6446; A6449; G0378; J0360; J0456; J0696; J1644; J1885; J1940; J1956; J2405; J2543; J3370; J7030; Q0177; Q9967

== ENCOUNTER 2025-01-21 15:36 | Outpatient (CLI) | payer MEDICAID ==
[~2025-01-21 15:36] MED LIST changes: -CEFD300C3 PO
--- NOTE | 2025-01-21 18:47 | RADIOLOGY REPORT ---
CHEST RADIOGRAPH Indication: FEVER UNKNOWN Technique: Frontal and lateral view of the chest was obtained Comparison: CT CTA CHEST CT ABD PELVIS on DOS: 07/01/24, DI CHEST,SINGLE VIEW on DOS: 07/01/24, DI CHEST,SINGLE VIEW on DOS: 06/16/24, DI CHEST,SINGLE VIEW on DOS: 03/18/23, DI CHEST,SINGLE VIEW on DOS: 02/05/23 FINDINGS: Lines and Tubes: None Lungs: Increased interstitial prominence. This may represent pulmonary vascular congestion and/or viral pneumonia. Pleura: No effusion.No pneumothorax. Cardiomediastinal contours: Unremarkable Bones: Unremarkable IMPRESSION: Increased interstitial prominence. This may represent pulmonary vascular congestion and/or viral pneumonia.
== END 2025-01-21 23:59 | disposition home or self-care (01) ==
LOC: RAD 15:36
PROVIDERS: ATTEND Family Medicine
DX: R50.9 Fever, unspecified (principal)
CPT/HCPCS: 71046

== ENCOUNTER 2025-02-23 13:56 | Outpatient (CLI) | payer MEDICAID ==
--- NOTE | 2025-02-23 14:40 | RADIOLOGY REPORT ---
EXAM: DI CHEST,TWO VIEWS HISTORY: CHRONIC COUGH COMPARISON: DI CHEST,TWO VIEWS on DOS: 01/21/25, CT scan of the chest dated 07/01/2024. TECHNIQUE: PA and lateral views of the chest were performed. FINDINGS: No pneumothorax, pulmonary edema, pleural effusions, or consolidative infiltrates. The heart is not enlarged. No fractures are identified about the bony thorax. IMPRESSION: No acute intrathoracic process.
== END 2025-02-23 23:59 | disposition home or self-care (01) ==
LOC: RAD 13:56
PROVIDERS: ATTEND Family Medicine
DX: R05.3 Chronic cough (principal)
CPT/HCPCS: 71046